=== PATIENT | male | born 1960 | race American Indian/Alaskan Native ===

== ENCOUNTER 2018-11-06 23:17 | Emergency (ER) | payer MEDICARE ==
[2018-11-07 00:37] LABS: Hemoglobin 12.2 gm/dl (11.8-15.2); Mean Corpuscular HGB Conc 34 % (32-34); Mean Corpuscular Volume 89 fl (84-94); Platelet Count 143 K/mm3 (140-440); Red Blood Count 4.04 M/mm3 (3.65-5.03); Red Cell Distribution Width 15.4 % (13.2-15.2)
[2018-11-07] MEDS ORDERED: ATIVAN IV ONE (00:38)
--- NOTE | 2018-11-07 00:45 | Emergency Department Report ---
ED Seizure HPI - General Chief Complaint: Seizure Stated Complaint: HEADACHE Time Seen by Provider: 11/06/18 23:53 Source: patient, EMS Mode of arrival: Stretcher Limitations: Physical Limitation - History of Present Illness Initial Comments: 58-year-old male with a past medical history diabetes, CAD with quadruple bypass, hypertension, bipolar disorder, PTSD, and severe depression presents from the [facility] with seizure and neurologic changes. Patient suspects that he is withdrawing from Klonopin. Patient has been on Klonopin for 20+ years. For the past 10 years he as been taking Klonopin 0.5 mg 3 times a day. He was recently at inpatient at [facility] where he was treated for suicide ideation. He was discharged 2 days into the [facility]. He states that he was told that he cannot take Klonopin at the [facility] and therefore he did not receive a prescription for Klonopin upon his discharge. Patient was discharged on metformin, propanolol, lisinopril, Lamictal, Glucotrol, meloxicam, BuSpar, Seroquel, Prilosec, and Effexor scripts. Pt also has an other med listed but does it is illegible to me on prescription. Patient states he actually hasn't had any of this medication in 2 days since being discharge from inpatient facility because they weren't filled over the weekend/holiday. Patient is having a stuttering speech, tremors, difficulty walking, and had a seizure prior to arrival. He also complains of a headache. - Related Data Home Medications Medication Instructions Recorded Confirmed Last Taken ARIPiprazole [Abilify TAB] 10 mg PO QHS 04/26/14 04/26/14 Unknown Benztropine [Cogentin] 1 mg PO QHS 04/26/14 04/26/14 Unknown Bupropion HCl [Wellbutrin XL] 300 mg PO QAM 04/26/14 04/26/14 Unknown Dicyclomine [Bentyl] 10 mg PO BID 04/26/14 04/26/14 Unknown Fluticasone Propionate [Flonase] 100 mcg NS QDAY 04/26/14 04/26/14 Unknown Furosemide [Lasix] 20 mg PO QAM 04/26/14 04/26/14 Unknown Haloperidol [Haldol] 5 mg PO BID 04/26/14 04/26/14 Unknown Ibuprofen [Motrin] 800 mg PO Q8H PRN 04/26/14 04/26/14 Unknown Loperamide [Imodium] 2 mg PO DAILY PRN 04/26/14 04/26/14 Unknown Pantoprazole [Protonix] 20 mg PO QDAY 04/26/14 04/26/14 Unknown QUEtiapine [SEROquel] 200 mg PO QHS 04/26/14 04/26/14 Unknown SUMAtriptan SUCCINATE [Imitrex] 100 mg PO BID PRN 04/26/14 04/26/14 Unknown Simvastatin 40 mg PO QHS 04/26/14 04/26/14 Unknown glipiZIDE [glipiZIDE ER] 2.5 mg PO BID 04/26/14 04/26/14 Unknown lamoTRIgine [LaMICtal] 150 mg PO BID 04/26/14 04/26/14 Unknown metFORMIN [Glucophage] 500 mg PO BID 04/26/14 04/26/14 Unknown methOCARBAMOL [Robaxin] 500 mg PO DAILY PRN 04/26/14 04/26/14 Unknown Previous Rx's Medication Instructions Recorded Last Taken Type Loratadine [Claritin] 10 mg PO DAILY #20 tablet 04/26/14 Unknown Rx metFORMIN [Glucophage] 1,000 mg PO BID #30 tablet 04/26/14 Unknown Rx Albuterol Sulfate [Proventil HFA] 1 - 2 puff IH Q4H PRN #1 hfa.aer.ad 04/28/14 Unknown Rx Loratadine [Claritin] 10 mg PO DAILY #20 tablet 04/28/14 Unknown Rx Naproxen Sodium [Aleve] 220 mg PO Q8H PRN #50 tablet 04/28/14 Unknown Rx Allergies Allergy/AdvReac Type Severity Reaction Status Date / Time amoxicillin trihydrate Allergy Swelling Verified 04/28/14 07:55 [From Augmentin] levofloxacin [From Levaquin] Allergy Unknown Verified 11/06/18 23:55 naproxen Allergy Unknown Verified 11/06/18 23:55 potassium clavulanate Allergy Swelling Verified 04/28/14 07:55 [From Augmentin] diphenhydramine HCl AdvReac RESTLESS Verified 04/28/14 07:55 [From Benadryl] LEG SYNDROME Penicillins AdvReac BODY Verified 04/28/14 07:55 BREAKS DOWN ED Review of Systems ROS: Stated complaint: HEADACHE Other details as noted in HPI Comment: All other systems reviewed and negative ED Past Medical Hx - Past Medical History Previous Medical History?: Yes Hx Hypertension: Yes Hx Heart Attack/AMI: Yes Hx Diabetes: Yes Hx Psychiatric Treatment: Yes (bipolar, panic DO, PTSD) Additional medical history: PTSD. PANIC DISORDER. SEVERE DEPRESSION. CAD - Surgical History Past Surgical History?: Yes Additional Surgical History: QUAD. BYPASS - Social History Smoking Status: Current Some Day Smoker Substance Use Type: None - Medications Home Medications: Home Medications Medication Instructions Recorded Confirmed Last Taken Type ARIPiprazole [Abilify TAB] 10 mg PO QHS 04/26/14 04/26/14 Unknown History Benztropine [Cogentin] 1 mg PO QHS 04/26/14 04/26/14 Unknown History Bupropion HCl [Wellbutrin XL] 300 mg PO QAM 04/26/14 04/26/14 Unknown History Dicyclomine [Bentyl] 10 mg PO BID 04/26/14 04/26/14 Unknown History Fluticasone Propionate [Flonase] 100 mcg NS QDAY 04/26/14 04/26/14 Unknown History Furosemide [Lasix] 20 mg PO QAM 04/26/14 04/26/14 Unknown History Haloperidol [Haldol] 5 mg PO BID 04/26/14 04/26/14 Unknown History Ibuprofen [Motrin] 800 mg PO Q8H PRN 04/26/14 04/26/14 Unknown History Loperamide [Imodium] 2 mg PO DAILY PRN 04/26/14 04/26/14 Unknown History Loratadine [Claritin] 10 mg PO DAILY #20 tablet 04/26/14 Unknown Rx Pantoprazole [Protonix] 20 mg PO QDAY 04/26/14 04/26/14 Unknown History QUEtiapine [SEROquel] 200 mg PO QHS 04/26/14 04/26/14 Unknown History SUMAtriptan SUCCINATE [Imitrex] 100 mg PO BID PRN 04/26/14 04/26/14 Unknown History Simvastatin 40 mg PO QHS 04/26/14 04/26/14 Unknown History glipiZIDE [glipiZIDE ER] 2.5 mg PO BID 04/26/14 04/26/14 Unknown History lamoTRIgine [LaMICtal] 150 mg PO BID 04/26/14 04/26/14 Unknown History metFORMIN [Glucophage] 1,000 mg PO BID #30 tablet 04/26/14 Unknown Rx metFORMIN [Glucophage] 500 mg PO BID 04/26/14 04/26/14 Unknown History methOCARBAMOL [Robaxin] 500 mg PO DAILY PRN 04/26/14 04/26/14 Unknown History Albuterol Sulfate [Proventil HFA] 1 - 2 puff IH Q4H PRN #1 hfa.aer.ad 04/28/14 Unknown Rx Loratadine [Claritin] 10 mg PO DAILY #20 tablet 04/28/14 Unknown Rx Naproxen Sodium [Aleve] 220 mg PO Q8H PRN #50 tablet 04/28/14 Unknown Rx ED Physical Exam - General Limitations: Physical Limitation - Other Other exam information: General: No limitations, patient is alert in no acute distress Head exam: Atraumatic, normocephalic Eyes exam: Normal appearance, pupils equal reactive to light, extraocular movements intact ENT: Moist mucous membrane, normal oropharynx Neck exam: Normal inspection, full range of motion, no meningismus nontender Respiratory exam: Clear to auscultation bilateral, no wheezes, rales, crackles Cardiovascular: Normal rate and rhythm, normal heart sounds Abdomen: Soft, nondistended, and nontender, with normal bowel sounds, no rebound, or guarding Extremity: Full range of motion normal inspection no deformity Back: Normal Inspection, full range of motion, no tenderness Neurologic: Alert, oriented x3, cranial nerves intact, stuttering speech, re sting tremor, [id number] function intact, 5/5 upper and lower extremity strength, sensation intact equal bilaterally. Psychiatric: normal affect, normal mood Skin: Warm, dry, intact ED Course Vital Signs 11/06/18 11/07/18 23:43 03:30 Temperature 99.5 F 99 F Pulse Rate 89 101 H Respiratory 16 16 Rate Blood Pressure 109/66 Blood Pressure 109/66 107/55 [Right] O2 Sat by Pulse 95 98 Oximetry - Reevaluation(s) Reevaluation #1: 11/07/18 03:36 pt is improving with ativan 1 mg. pt's gait is more steady, speech is more fluent. He is still very tremulous and heart rate ranges from 101-110. Elevated BUN creatinine ratio and therefore 1 L normal saline order. Hospitalist will be informed for admission ED Medical Decision Making - Lab Data Result diagrams: 11/07/18 00:08 11/07/18 00:08 Lab Results 11/06/18 11/07/18 11/07/18 Range/Units 23:47 00:08 00:08 WBC 5.7 (4.5-11.0) K/mm3 RBC 4.04 (3.65-5.03) M/mm3 Hgb 12.2 (11.8-15.2) gm/dl Hct 36.0 (35.5-45.6) % MCV 89 (84-94) fl MCH 30 (28-32) pg MCHC 34 (32-34) % RDW 15.4 H (13.2-15.2) % Plt Count 143 (140-440) K/mm3 Sodium 141 (137-145) mmol/L Potassium 3.9 (3.6-5.0) mmol/L Chloride 104.1 (98-107) mmol/L Carbon Dioxide 22 (22-30) mmol/L Anion Gap 19 mmol/L BUN 28 H (9-20) mg/dL Creatinine 1.4 (0.8-1.5) mg/dL Estimated GFR > 60 ml/min BUN/Creatinine Ratio 20 % Glucose 230 H (75-100) mg/dL POC Glucose 222 H (70-105) Calcium 9.0 (8.4-10.2) mg/dL Magnesium (1.7-2.3) mg/dL Urine Color (Yellow) Urine Turbidity (Clear) Urine pH (5.0-7.0) Ur Specific [place] (1.003-1.030) Urine Protein (Negative) mg/dL Urine Glucose (UA) (Negative) mg/dL Urine Ketones (Negative) mg/dL Urine Blood (Negative) Urine Nitrite (Negative) Urine Bilirubin (Negative) Urine Urobilinogen (<2.0) mg/dL Ur Leukocyte Esterase (Negative) Urine WBC (Auto) (0.0-6.0) /HPF Urine RBC (Auto) (0.0-6.0) /HPF U Epithel Cells (Auto) (0-13.0) /HPF Hyaline Casts /LPF Urine Mucus /HPF Urine Opiates Screen Urine Methadone Screen Ur Barbiturates Screen Ur Phencyclidine Scrn Ur Amphetamines Screen U Benzodiazepines Scrn Urine Cocaine Screen U Marijuana (THC) Screen Drugs of Abuse Note Plasma/Serum Alcohol (0-0.07) % 11/07/18 11/07/18 11/07/18 Range/Units 00:08 00:08 01:09 WBC (4.5-11.0) K/mm3 RBC (3.65-5.03) M/mm3 Hgb (11.8-15.2) gm/dl Hct (35.5-45.6) % MCV (84-94) fl MCH (28-32) pg MCHC (32-34) % RDW (13.2-15.2) % Plt Count (140-440) K/mm3 Sodium (137-145) mmol/L Potassium (3.6-5.0) mmol/L Chloride (98-107) mmol/L Carbon Dioxide (22-30) mmol/L Anion Gap mmol/L BUN (9-20) mg/dL Creatinine (0.8-1.5) mg/dL Estimated GFR ml/min BUN/Creatinine Ratio % Glucose (75-100) mg/dL POC Glucose (70-105) Calcium (8.4-10.2) mg/dL Magnesium 1.50 L (1.7-2.3) mg/dL Urine Color Yellow (Yellow) Urine Turbidity Clear (Clear) Urine pH 5.0 (5.0-7.0) Ur Specific [place] 1.019 (1.003-1.030) Urine Protein <15 mg/dl (Negative) mg/dL Urine Glucose (UA) 50 (Negative) mg/dL Urine Ketones Neg (Negative) mg/dL Urine Blood Neg (Negative) Urine Nitrite Neg (Negative) Urine Bilirubin Neg (Negative) Urine Urobilinogen < 2.0 (<2.0) mg/dL Ur Leukocyte Esterase Neg (Negative) Urine WBC (Auto) 1.0 (0.0-6.0) /HPF Urine RBC (Auto) 3.0 (0.0-6.0) /HPF U Epithel Cells (Auto) < 1.0 (0-13.0) /HPF Hyaline Casts 1 /LPF Urine Mucus Few /HPF Urine Opiates Screen Urine Methadone Screen Ur Barbiturates Screen Ur Phencyclidine Scrn Ur Amphetamines Screen U Benzodiazepines Scrn Urine Cocaine Screen U Marijuana (THC) Screen Drugs of Abuse Note Plasma/Serum Alcohol < 0.01 (0-0.07) % 11/07/18 Range/Units 01:09 WBC (4.5-11.0) K/mm3 RBC (3.65-5.03) M/mm3 Hgb (11.8-15.2) gm/dl Hct (35.5-45.6) % MCV (84-94) fl MCH (28-32) pg MCHC (32-34) % RDW (13.2-15.2) % Plt Count (140-440) K/mm3 Sodium (137-145) mmol/L Potassium (3.6-5.0) mmol/L Chloride (98-107) mmol/L Carbon Dioxide (22-30) mmol/L Anion Gap mmol/L BUN (9-20) mg/dL Creatinine (0.8-1.5) mg/dL Estimated GFR ml/min BUN/Creatinine Ratio % Glucose (75-100) mg/dL POC Glucose (70-105) Calcium (8.4-10.2) mg/dL Magnesium (1.7-2.3) mg/dL Urine Color (Yellow) Urine Turbidity (Clear) Urine pH (5.0-7.0) Ur Specific [place] (1.003-1.030) Urine Protein (Negative) mg/dL Urine Glucose (UA) (Negative) mg/dL Urine Ketones (Negative) mg/dL Urine Blood (Negative) Urine Nitrite (Negative) Urine Bilirubin (Negative) Urine Urobilinogen (<2.0) mg/dL Ur Leukocyte Esterase (Negative) Urine WBC (Auto) (0.0-6.0) /HPF Urine RBC (Auto) (0.0-6.0) /HPF U Epithel Cells (Auto) (0-13.0) /HPF Hyaline Casts /LPF Urine Mucus /HPF Urine Opiates Screen Presumptive negative Urine Methadone Screen Presumptive negative Ur Barbiturates Screen Presumptive negative Ur Phencyclidine Scrn Presumptive negative Ur Amphetamines Screen Presumptive negative U Benzodiazepines Scrn Presumptive negative Urine Cocaine Screen Presumptive negative U Marijuana (THC) Screen Presumptive negative Drugs of Abuse Note Disclamer Plasma/Serum Alcohol (0-0.07) % - Radiology Data Radiology results: report reviewed CT HEAD WITHOUT CONTRAST INDICATION: sz, stuttering speech, tremor. TECHNIQUE: All CT scans at this location are performed using CT dose reduction for ALARA by means of automated exposure control. COMPARISON: None available. FINDINGS: HEMORRHAGE: None. EXTRA-AXIAL SPACES: Normal in size and morphology for the patient's age. VENTRICULAR SYSTEM: Normal in size and morphology for the patient's age. BRAIN PARENCHYMA: No acute findings. Mild deep periventricular white matter hypodensities are likely due to mild microangiopathy. MIDLINE SHIFT OR HERNIATION: None. ORBITS: Normal as visualized. SOFT TISSUES OF HEAD: There appears to be a small left parietal scalp contusion. CALVARIUM: Normal. VISUALIZED PARANASAL SINUSES AND MASTOID AIR CELLS: Clear. ADDITIONAL FINDINGS: None. IMPRESSION: 1. No acute intracranial abnormality. - Medical Decision Making pt will be admitted for significant benzo withdrawal improving but persistent withdrawal symptoms with a history of benzodiazepine dependence Patient will be admitted to the hospital for further treatment IV mag given for hypomagnesemia - Differential Diagnosis Klonopin withdrawal, CVA, encephalopathy Critical Care Time: No Critical care attestation.: If time is entered above; I have spent that time in minutes in the direct care of this critically ill patient, excluding procedure time. ED Disposition Clinical Impression: Benzodiazepine dependence, Benzodiazepine withdrawal, Seizure, Tremor, Abnormal rate of speech, Hypomagnesemia Disposition: DC-09 OP ADMIT IP TO THIS HOSP Is pt being admited?: Yes Condition: Stable Time of Disposition: 03:44 (Dr Fan/hosp)
[2018-11-07 00:49] LABS: BUN/Creatinine Ratio 20; Blood Urea Nitrogen 28 mg/dL (9-20); Hemolysis Index 6
--- NOTE | 2018-11-07 01:30 | Cat Scan Report ---
CT HEAD WITHOUT CONTRAST INDICATION: sz, stuttering speech, tremor. TECHNIQUE: All CT scans at this location are performed using CT dose reduction for ALARA by means of automated e xposure control. COMPARISON: None available. FINDINGS: HEMORRHAGE: None. EXTRA-AXIAL SPACES: Normal in size and morphology for the patient's age. VENTRICULAR SYSTEM: Normal in size and morphology for the patient's age. BRAIN PARENCHYMA: No acute findings. Mild deep periventricular white matter hypodensities are likely due to mild microangiopathy. MIDLINE SHIFT OR HERNIATION: None. ORBITS: Normal as visualized. SOFT TISSUES OF HEAD: There appears to be a small left parietal scalp contusion. CALVARIUM: Normal. VISUALIZED PARANASAL SINUSES AND MASTOID AIR CELLS: Clear. ADDITIONAL FINDINGS: None. IMPRESSION: 1. No acute intracranial abnormality. Signer Name: Linus Corbett MD Signed: 11/07/2018 1:26 AM Workstation Name: [id number]
[2018-11-07] MEDS ORDERED: MAGNESIUM SULFATE 1 GM in NACL 0.9% 50 ML IV ONE (02:07)
[2018-11-07 02:09] LABS: Bilirubin,Urine NEG (Negative); Blood,Urine NEG (Negative); Color,Urine Yellow (Yellow); Hyaline Casts,Urine 1 /LPF; Mucus,Urine FEW /HPF; Protein,Urine <15 mg/dL mg/dL (Negative); Urobilinogen,Urine < 2.0 mg/dL (<2.0)
[2018-11-07 02:15] LABS: Amphetamine Screen,Urine PRESUMPTIVE NEGATIVE; Benzodiazepines Screen,Urine PRESUMPTIVE NEGATIVE; Cannabinoid Screen,Urine PRESUMPTIVE NEGATIVE; Cocaine Screen,Urine PRESUMPTIVE NEGATIVE; Methadone Screen,Urine PRESUMPTIVE NEGATIVE; Opiate Screen,Urine PRESUMPTIVE NEGATIVE
[2018-11-07] MEDS ORDERED: NACL 0.9% 1000 ML 1,000 ML IV ONE (03:36)
[2018-11-07] MEDS ORDERED: SODIUM CHLORIDE FLUSH SYRINGE 10 ML IV PRN (03:51)
[2018-11-07] MEDS ORDERED: ZOFRAN IV PRN (03:51)
[2018-11-07] MEDS ORDERED: PROVENTIL IH PRN (03:51)
[2018-11-07] MEDS ORDERED: TYLENOL PO PRN (03:51)
--- NOTE | 2018-11-07 03:59 | History and Physical Report ---
History of Present Illness Date of examination: 11/07/18 Date of admission: 11/06/2018 Chief complaint: Seizure, benzodiazepine withdrawal Past History Past Medical History: CAD (status post quadruple bypass surgery), diabetes, hypertension, other (bipolar disorder, PTSD, severe depression, panic disorder) Past Surgical History: Other (status post quadruple bypass surgery) Social history: smoking (current ME a smoker), other (resident at [facility]/ rehabilitation [facility]) Family history: no significant family history Medications and Allergies Allergies Allergy/AdvReac Type Severity Reaction Status Date / Time amoxicillin trihydrate Allergy Swelling Verified 04/28/14 07:55 [From Augmentin] levofloxacin [From Levaquin] Allergy Unknown Verified 11/06/18 23:55 naproxen Allergy Unknown Verified 11/06/18 23:55 potassium clavulanate Allergy Swelling Verified 04/28/14 07:55 [From Augmentin] diphenhydramine HCl AdvReac RESTLESS Verified 04/28/14 07:55 [From Benadryl] LEG SYNDROME Penicillins AdvReac BODY Verified 04/28/14 07:55 BREAKS DOWN Home Medications Medication Instructions Recorded Confirmed Last Taken Type ARIPiprazole [Abilify TAB] 10 mg PO QHS 04/26/14 04/26/14 Unknown History Benztropine [Cogentin] 1 mg PO QHS 04/26/14 04/26/14 Unknown History Bupropion HCl [Wellbutrin XL] 300 mg PO QAM 04/26/14 04/26/14 Unknown History Dicyclomine [Bentyl] 10 mg PO BID 04/26/14 04/26/14 Unknown History Fluticasone Propionate [Flonase] 100 mcg NS QDAY 04/26/14 04/26/14 Unknown History Furosemide [Lasix] 20 mg PO QAM 04/26/14 04/26/14 Unknown History Haloperidol [Haldol] 5 mg PO BID 04/26/14 04/26/14 Unknown History Ibuprofen [Motrin] 800 mg PO Q8H PRN 04/26/14 04/26/14 Unknown History Loperamide [Imodium] 2 mg PO DAILY PRN 04/26/14 04/26/14 Unknown History Loratadine [Claritin] 10 mg PO DAILY #20 tablet 04/26/14 Unknown Rx Pantoprazole [Protonix] 20 mg PO QDAY 04/26/14 04/26/14 Unknown History QUEtiapine [SEROquel] 200 mg PO QHS 04/26/14 04/26/14 Unknown History SUMAtriptan SUCCINATE [Imitrex] 100 mg PO BID PRN 04/26/14 04/26/14 Unknown History Simvastatin 40 mg PO QHS 04/26/14 04/26/14 Unknown History glipiZIDE [glipiZIDE ER] 2.5 mg PO BID 04/26/14 04/26/14 Unknown History lamoTRIgine [LaMICtal] 150 mg PO BID 04/26/14 04/26/14 Unknown History metFORMIN [Glucophage] 1,000 mg PO BID #30 tablet 04/26/14 Unknown Rx metFORMIN [Glucophage] 500 mg PO BID 04/26/14 04/26/14 Unknown History methOCARBAMOL [Robaxin] 500 mg PO DAILY PRN 04/26/14 04/26/14 Unknown History Albuterol Sulfate [Proventil HFA] 1 - 2 puff IH Q4H PRN #1 hfa.aer.ad 04/28/14 Unknown Rx Loratadine [Claritin] 10 mg PO DAILY #20 tablet 04/28/14 Unknown Rx Naproxen Sodium [Aleve] 220 mg PO Q8H PRN #50 tablet 04/28/14 Unknown Rx Active Meds: Active Medications Acetaminophen (Tylenol) 650 mg PO Q4H PRN PRN Reason: Pain MILD(1-3)/Fever >100.5/BE Albuterol (Proventil) 2.5 mg IH Q4HRT PRN PRN Reason: Shortness Of Breath Docusate Sodium (Colace) 100 mg PO BID MISTY Enoxaparin Sodium (Lovenox) 40 mg SUB-Q QDAY MISTY Sodium Chloride (Nacl 0.9% 1000 Ml) 1,000 mls @ 999 mls/hr IV BOLUS ONE Stop: 11/07/18 04:36 Last Admin: 11/07/18 03:39 Dose: 999 mls/hr Documented by: Ondansetron HCl (Zofran) 4 mg IV Q8H PRN PRN Reason: Nausea And Vomiting Sodium Chloride (Sodium Chloride Flush Syringe 10 Ml) 10 ml IV BID MISTY Sodium Chloride (Sodium Chloride Flush Syringe 10 Ml) 10 ml IV PRN PRN PRN Reason: LINE FLUSH Exam - Constitutional Vitals: Temp Pulse Resp BP Pulse Ox 99 F 101 H 16 107/55 98 11/07/18 03:30 11/07/18 03:30 11/07/18 03:30 11/07/18 03:30 11/07/18 03:30 Results - Labs CBC & Chem 7: 11/07/18 00:08 11/07/18 00:08 Labs: Laboratory Last Values WBC 5.7 K/mm3 (4.5-11.0) 11/07/18 00:08 RBC 4.04 M/mm3 (3.65-5.03) 11/07/18 00:08 Hgb 12.2 gm/dl (11.8-15.2) 11/07/18 00:08 Hct 36.0 % (35.5-45.6) 11/07/18 00:08 MCV 89 fl (84-94) 11/07/18 00:08 MCH 30 pg (28-32) 11/07/18 00:08 MCHC 34 % (32-34) 11/07/18 00:08 RDW 15.4 % (13.2-15.2) H 11/07/18 00:08 Plt Count 143 K/mm3 (140-440) 11/07/18 00:08 Sodium 141 mmol/L (137-145) 11/07/18 00:08 Potassium 3.9 mmol/L (3.6-5.0) 11/07/18 00:08 Chloride 104.1 mmol/L (98-107) 11/07/18 00:08 Carbon Dioxide 22 mmol/L (22-30) 11/07/18 00:08 19 mmol/L 11/07/18 00:08 BUN 28 mg/dL (9-20) H 11/07/18 00:08 1.4 mg/dL (0.8-1.5) 11/07/18 00:08 Estimated GFR > 60 ml/min 11/07/18 00:08 20 % 11/07/18 00:08 Glucose 230 mg/dL (75-100) H 11/07/18 00:08 POC Glucose 222 (70-105) H 11/06/18 23:47 Calcium 9.0 mg/dL (8.4-10.2) 11/07/18 00:08 Magnesium 1.50 mg/dL (1.7-2.3) L 11/07/18 00:08 Yellow (Yellow) 11/07/18 01:09 Clear (Clear) 11/07/18 01:09 5.0 (5.0-7.0) 11/07/18 01:09 Ur Specific [place] 1.019 (1.003-1.030) 11/07/18 01:09 <15 mg/dl mg/dL (Negative) 11/07/18 01:09 50 mg/dL (Negative) 11/07/18 01:09 Neg mg/dL (Negative) 11/07/18 01:09 Neg (Negative) 11/07/18 01:09 Neg (Negative) 11/07/18 01:09 Neg (Negative) 11/07/18 01:09 < 2.0 mg/dL (<2.0) 11/07/18 01:09 Ur Leukocyte Esterase Neg (Negative) 11/07/18 01:09 1.0 /HPF (0.0-6.0) 11/07/18 01:09 3.0 /HPF (0.0-6.0) 11/07/18 01:09 U Epithel Cells (Auto) < 1.0 /HPF (0-13.0) 11/07/18 01:09 Hyaline Casts 1 /LPF 11/07/18 01:09 Few /HPF 11/07/18 01:09 Presumptive negative 11/07/18 01:09 Presumptive negative 11/07/18 01:09 Ur Barbiturates Screen Presumptive negative 11/07/18 01:09 Ur Phencyclidine Scrn Presumptive negative 11/07/18 01:09 Ur Amphetamines Screen Presumptive negative 11/07/18 01:09 U Benzodiazepines Scrn Presumptive negative 11/07/18 01:09 Presumptive negative 11/07/18 01:09 U Marijuana (THC) Screen Presumptive negative 11/07/18 01:09 Disclamer 11/07/18 01:09 Plasma/Serum Alcohol < 0.01 % (0-0.07) 11/07/18 00:08 - Imaging and Cardiology Imaging and Cardiology: CT head: FINDINGS: HEMORRHAGE: None. EXTRA-AXIAL SPACES: Normal in size and morphology for the patient's age. VENTRICULAR SYSTEM: Normal in size and morphology for the patient's age. BRAIN PARENCHYMA: No acute findings. Mild deep periventricular white matter hypodensities are likely due to mild microangiopathy. MIDLINE SHIFT OR HERNIATION: None. ORBITS: Normal as visualized. SOFT TISSUES OF HEAD: There appears to be a small left parietal scalp contusion. CALVARIUM: Normal. VISUALIZED PARANASAL SINUSES AND MASTOID AIR CELLS: Clear. ADDITIONAL FINDINGS: None. IMPRESSION: 1. No acute intracranial abnormality.
[2018-11-07] MEDS: GLUCOPHAGE PO SCH ×2 (07:55→19:02)
[2018-11-07] MEDS: GLUCOTROL PO SCH ×2 (08:19→19:02)
[2018-11-07] MEDS ORDERED: VENLAFAXINE HCL 150 MG PO SCH (10:00)
[2018-11-07] MEDS ORDERED: NON-FORMULARY (Metformin Hcl [Metformin] 1,000 MG) PO SCH (10:00)
[2018-11-07] MEDS ORDERED: NON-FORMULARY (Lamotrigine [Lamictal] 150 MG) PO SCH (10:00)
[2018-11-07] MEDS ORDERED: PROPRANOLOL HCL 60 MG PO SCH (10:00)
[2018-11-07] MEDS ORDERED: LOVENOX SUB-Q SCH (10:00)
[2018-11-07] MEDS ORDERED: SODIUM CHLORIDE FLUSH SYRINGE 10 ML IV SCH (10:00)
[2018-11-07] MEDS ORDERED: OMEPRAZOLE MAGNESIUM 40 MG PO SCH (10:00)
[2018-11-07] MEDS ORDERED: NON-FORMULARY (Meloxicam [Mobic] 15 MG) PO SCH (10:00)
[2018-11-07] MEDS ORDERED: BUSPAR ONE ×2 (10:26→22:38)
[2018-11-07] MEDS ORDERED: PROTONIX PO ONE (10:27)
[2018-11-07] MEDS ORDERED: COLACE ONE ×2 (10:27→22:38)
[2018-11-07] MEDS ORDERED: ZESTRIL ONE (10:28)
[2018-11-07] MEDS: COLACE PO SCH ×2 (10:36→22:41)
[2018-11-07] MEDS: BUSPAR PO SCH ×2 (10:36→22:41)
[2018-11-07] MEDS: INDERAL LA PO SCH (10:37)
[2018-11-07] MEDS: EFFEXOR XR PO SCH (10:37)
[2018-11-07] MEDS: MOBIC PO SCH (10:38)
[2018-11-07] MEDS: LaMICtal PO SCH ×2 (10:38→22:42)
[2018-11-07] MEDS: PROTONIX PO SCH ×2 (10:39→22:42)
[2018-11-07] MEDS: ZESTRIL PO SCH (10:39)
[2018-11-07] MEDS: TRICOR PO SCH (10:39)
[2018-11-07] MEDS ORDERED: GLUCOPHAGE ONE (19:00)
[2018-11-07] MEDS ORDERED: NON-FORMULARY (Quetiapine Fumarate [Seroquel] 300 MG) PO SCH (22:00)
[2018-11-07] MEDS ORDERED: LaMICtal ONE ×2 (22:39→22:40)
[2018-11-08] MEDS ORDERED: GLUCOPHAGE ONE (08:42)
[2018-11-08] MEDS: GLUCOPHAGE PO SCH ×2 (08:45→18:15)
[2018-11-08] MEDS: GLUCOTROL PO SCH ×2 (09:00→18:15)
[2018-11-08] MEDS ORDERED: BUSPAR ONE ×2 (11:56→23:45)
[2018-11-08] MEDS ORDERED: COLACE ONE (11:57)
[2018-11-08] MEDS ORDERED: PROTONIX PO ONE ×2 (12:01→23:44)
[2018-11-08] MEDS ORDERED: ZESTRIL ONE (12:02)
[2018-11-08] MEDS: COLACE PO SCH ×2 (12:05→23:55)
[2018-11-08] MEDS: BUSPAR PO SCH ×2 (12:05→23:55)
[2018-11-08] MEDS: PROTONIX PO SCH ×2 (12:07→23:56)
[2018-11-08] MEDS ORDERED: LaMICtal ONE ×3 (12:26→23:45)
[2018-11-08] MEDS: LaMICtal PO SCH ×2 (12:30→23:55)
[2018-11-08] MEDS: ZESTRIL PO SCH (12:30)
[2018-11-08] MEDS: MOBIC PO SCH (14:30)
[2018-11-08] MEDS: EFFEXOR XR PO SCH (14:30)
[2018-11-08] MEDS: TRICOR PO SCH (14:30)
[2018-11-08] MEDS: INDERAL LA PO SCH (14:30)
[2018-11-08] MEDS ORDERED: TYLENOL PO ONE (20:47)
[2018-11-08] MEDS ORDERED: TYLENOL ONE (20:56)
[2018-11-09] MEDS: GLUCOTROL PO SCH ×2 (08:15→18:44)
[2018-11-09] MEDS ORDERED: GLUCOPHAGE ONE ×2 (08:31→18:27)
[2018-11-09] MEDS: GLUCOPHAGE PO SCH ×2 (08:40→18:27)
[2018-11-09] MEDS ORDERED: LaMICtal ONE ×4 (11:21→22:43)
[2018-11-09] MEDS ORDERED: COLACE ONE ×2 (11:22→22:42)
[2018-11-09] MEDS ORDERED: BUSPAR ONE ×2 (11:22→22:42)
[2018-11-09] MEDS ORDERED: PROTONIX PO ONE ×2 (11:24→22:42)
[2018-11-09] MEDS: INDERAL LA PO SCH (11:30)
[2018-11-09] MEDS: BUSPAR PO SCH ×2 (11:30→22:50)
[2018-11-09] MEDS: COLACE PO SCH ×2 (11:30→22:50)
[2018-11-09] MEDS: PROTONIX PO SCH ×2 (11:31→22:50)
[2018-11-09] MEDS: LaMICtal PO SCH ×2 (11:31→22:50)
[2018-11-09] MEDS: ZESTRIL PO SCH (11:31)
[2018-11-09] MEDS: MOBIC PO SCH (12:41)
[2018-11-09] MEDS: TRICOR PO SCH (12:42)
[2018-11-09] MEDS: EFFEXOR XR PO SCH (12:42)
[2018-11-10] MEDS: GLUCOTROL PO SCH (08:09)
[2018-11-10] MEDS: GLUCOPHAGE PO SCH (08:09)
[2018-11-10] MEDS ORDERED: COLACE ONE (09:43)
[2018-11-10] MEDS ORDERED: ZESTRIL ONE (09:43)
[2018-11-10] MEDS ORDERED: LaMICtal ONE ×2 (09:48)
[2018-11-10] MEDS ORDERED: BUSPAR ONE (09:48)
[2018-11-10] MEDS ORDERED: PROTONIX PO ONE (09:48)
[2018-11-10] MEDS: INDERAL LA PO SCH (10:00)
[2018-11-10] MEDS: ZESTRIL PO SCH (10:00)
[2018-11-10 10:01] VITALS: BP 107/80
[2018-11-10] MEDS: MOBIC PO SCH (10:01)
[2018-11-10] MEDS: BUSPAR PO SCH (10:01)
[2018-11-10] MEDS: EFFEXOR XR PO SCH (10:01)
[2018-11-10] MEDS: COLACE PO SCH (10:01)
[2018-11-10] MEDS: TRICOR PO SCH (10:01)
[2018-11-10] MEDS: LaMICtal PO SCH (10:01)
[2018-11-10] MEDS: PROTONIX PO SCH (10:01)
== END 2018-11-10 16:33 | disposition admitted as inpatient to this hospital (09) ==
LOC: EEVIPCON 23:17 → ED 23:17 → UNDOADMIN 11-07 03:52 → 3A 11-07 03:52 → 4A 11-07 08:24 → 3A 11-07 08:24 → ED 11-10 16:33
DX: R56.9 Unspecified convulsions (principal); E83.42 Hypomagnesemia; F13.20 Sedative, hypnotic or anxiolytic dependence, uncomplicated; I10 Essential (primary) hypertension; F31.9 Bipolar disorder, unspecified; F43.10 Post-traumatic stress disorder, unspecified; E11.9 Type 2 diabetes mellitus without complications; I25.2 Old myocardial infarction; F17.200 Nicotine dependence, unspecified, uncomplicated; Z79.899 Other long term (current) drug therapy
CPT/HCPCS: 36415; 70450; 80048; 80307; 81001; 82962; 83735; 85027; 93005; 96361; 96365; 96375; 99285; J2060; J3475; J7030; 80320; G0480

== ENCOUNTER 2021-04-24 15:42 | Emergency (ER) | payer MEDICARE ==
[2021-04-24] MEDS ORDERED: ONDANSETRON 4 MG ODT TAB PO ONE (15:48)
--- NOTE | 2021-04-24 16:06 | Emergency Department Report ---
ED General Adult HPI - General Chief complaint: Neuro Symptoms/Deficit Stated complaint: R SIDE NUMBNESS FROM RECENT STROKE Time Seen by Provider: 04/24/21 15:47 Source: EMS Mode of arrival: Wheelchair Limitations: No Limitations - History of Present Illness Initial comments: Patient came in by ambulance with multiple issues. He states that he has felt dizzy and lightheaded. This is been present for weeks. He reports aching in the right arm and shoulder. This is also been present for weeks. He [place]. He has had a stroke several weeks ago. He states that he is on medication. He has not taken his pain medication yet and states that he "forgets to take his pain medication." He states that he forgets to take his pain medicine despite having severe pain that is constant and aching and chronic. Regardless, he states that he is sick. He reiterates that he is sick. He states that multiple doctors just do not understand how "sick he really is." He could not get into see his regular doctor. He tried calling his former doctor who told him he needed to call an ambulance. Patient called EMS and was transported here. - Related Data Home Medications Medication Instructions Recorded Confirmed Last Taken Fenofibrate [Tricor] 145 mg PO QDAY 11/07/18 11/07/18 Unknown Meloxicam [Mobic] 15 mg PO DAILY 11/07/18 11/07/18 Unknown Metformin HCl [metFORMIN] 1,000 mg PO BID 11/07/18 11/07/18 Unknown Omeprazole Magnesium [Prilosec] 40 mg PO BID 11/07/18 11/07/18 Unknown Propranolol HCl 60 mg PO DAILY 11/07/18 11/07/18 Unknown Quetiapine Fumarate [SEROquel] 300 mg PO HS 11/07/18 11/07/18 Unknown Venlafaxine HCl [Effexor Xr] 150 mg PO DAILY 11/07/18 11/07/18 Unknown busPIRone [Buspar] 15 mg PO BID 11/07/18 11/07/18 Unknown glipiZIDE [Glucotrol] 5 mg PO BID 11/07/18 11/07/18 Unknown lamoTRIgine [LaMICtal] 150 mg PO BID 11/07/18 11/07/18 Unknown lisinopriL [Zestril] 20 mg PO QDAY 11/07/18 11/07/18 Unknown Previous Rx's Medication Instructions Recorded Last Taken Type clonazePAM [KlonoPIN] 0.5 mg PO TID #15 tablet 11/10/18 Unknown Rx Allergies Allergy/AdvReac Type Severity Reaction Status Date / Time amoxicillin trihydrate Allergy Swelling Verified 04/28/14 07:55 [From Augmentin] levofloxacin [From Levaquin] Allergy Unknown Verified 11/06/18 23:55 naproxen Allergy Unknown Verified 11/06/18 23:55 potassium clavulanate Allergy Swelling Verified 04/28/14 07:55 [From Augmentin] diphenhydramine HCl AdvReac RESTLESS Verified 04/28/14 07:55 [From Benadryl] LEG SYNDROME Penicillins AdvReac BODY Verified 04/28/14 07:55 BREAKS DOWN ED Review of Systems ROS: Stated complaint: R SIDE NUMBNESS FROM RECENT STROKE Other details as noted in HPI Comment: All other systems reviewed and negative Constitutional: denies: fever Eyes: denies: eye pain ENT: denies: throat pain Respiratory: denies: cough Cardiovascular: denies: chest pain Endocrine: denies: unexplained weight loss Gastrointestinal: nausea. denies: abdominal pain Genitourinary: denies: dysuria Musculoskeletal: denies: back pain Skin: denies: rash Neurological: denies: headache Hematological/Lymphatic: denies: easy bruising ED Past Medical Hx - Past Medical History Hx Hypertension: Yes Hx Heart Attack/AMI: Yes Hx Diabetes: Yes Hx Psychiatric Treatment: Yes (bipolar, panic DO, PTSD) Additional medical history: PTSD. PANIC DISORDER. SEVERE DEPRESSION. CAD - Surgical History Additional Surgical History: QUAD. BYPASS - Family History Family history: hypertension - Social History Smoking Status: Current Some Day Smoker (We discussed tobacco cessation x3 minutes) Substance Use Type: None - Medications Home Medications: Home Medications Medication Instructions Recorded Confirmed Last Taken Type Fenofibrate [Tricor] 145 mg PO QDAY 11/07/18 11/07/18 Unknown History Meloxicam [Mobic] 15 mg PO DAILY 11/07/18 11/07/18 Unknown History Metformin HCl [metFORMIN] 1,000 mg PO BID 11/07/18 11/07/18 Unknown History Omeprazole Magnesium [Prilosec] 40 mg PO BID 11/07/18 11/07/18 Unknown History Propranolol HCl 60 mg PO DAILY 11/07/18 11/07/18 Unknown History Quetiapine Fumarate [SEROquel] 300 mg PO HS 11/07/18 11/07/18 Unknown History Venlafaxine HCl [Effexor Xr] 150 mg PO DAILY 11/07/18 11/07/18 Unknown History busPIRone [Buspar] 15 mg PO BID 11/07/18 11/07/18 Unknown History glipiZIDE [Glucotrol] 5 mg PO BID 11/07/18 11/07/18 Unknown History lamoTRIgine [LaMICtal] 150 mg PO BID 11/07/18 11/07/18 Unknown History lisinopriL [Zestril] 20 mg PO QDAY 11/07/18 11/07/18 Unknown History clonazePAM [KlonoPIN] 0.5 mg PO TID #15 tablet 11/10/18 Unknown Rx ED Physical Exam - General Limitations: No Limitations, Other General appearance: alert, in no apparent distress - Head Head exam: Present: atraumatic, normocephalic - Eye Eye exam: Present: normal appearance, EOMI - ENT ENT exam: Present: normal orophraynx, normal external ear exam - Neck Neck exam: Present: normal inspection. Absent: meningismus - Respiratory Respiratory exam: Present: normal lung sounds bilaterally. Absent: respiratory distress - Cardiovascular Cardiovascular Exam: Present: regular rate, normal rhythm - GI/Abdominal GI/Abdominal exam: Present: soft. Absent: tenderness - Extremities Exam Extremities exam: Present: normal capillary refill - Back Exam Back exam: Absent: CVA tenderness (R), CVA tenderness (L) - Neurological Exam Neurological exam: Present: alert, oriented X3, CN II-XII intact, normal gait. Absent: motor sensory deficit - Psychiatric Psychiatric exam: Present: normal affect, normal mood - Skin Skin exam: Present: warm, dry ED Course Vital Signs 04/24/21 04/24/21 15:43 17:51 Temperature 98.6 F Pulse Rate 89 76 Respiratory 14 15 Rate Blood Pressure 120/68 102/65 [Left] O2 Sat by Pulse 98 98 Oximetry - Reevaluation(s) Reevaluation #1: 04/24/21 13:25 EMS was met upon arrival. EKG was ordered. Old records reviewed. Reevaluation #2: 04/24/21 18:06 EKG have been noted. Glucose was noted. Patient was discharged. ED Medical Decision Making - EKG Data -: EKG Interpreted by Me - EKG Data 04/24/21 18:06 EKG shows normal sinus rhythm at 74. Intervals are normal including QRS of 98 and a QT corrected of 444. Patient has no ST elevation to suggest STEMI. There is no ST depression suggestive of ischemia. He has T wave flattening but there is no interval change. There is artifact noted. - Medical Decision Making Patient presents with multiple issues that are chronic in nature. He reports having ongoing dizziness. There is no neurologic symptom that is new related to a new stroke or TIA. He actually had dizziness for quite some time before he actually had a stroke. This is described as lightheadedness. It is not vertiginous in nature. There is no head trauma. Patient also complained of chronic right arm pain. He was having so much pain that he sometimes forgets to take his pain medication. Regardless, there is no new trauma. I am not concerned for fracture or dislocation. Certainly, there is no EKG changes would suggest referred pain from an ACS type source. He was referred to his PCP for recheck. He can take his regular pain medication at home. Critical Care Time: No Critical care attestation.: If time is entered above; I have spent that time in minutes in the direct care of this critically ill patient, excluding procedure time. ED Disposition Clinical Impression: Dizziness, Chronic pain syndrome Disposition: 01 HOME / SELF CARE / HOMELESS Is pt being admited?: No Condition: Stable Instructions: Chronic Pain, Adult, Dizziness Additional Instructions: Drink plenty water. Continue home medication. Return for problems. Follow-up with your regular doctor for recheck.
[2021-04-24 17:52] VITALS: BP 102/65
--- NOTE | 2021-04-25 13:28 | Electrocardiograph Report ---
[facility] Test Date: 2021-04-24 Test Time: 17:12:12 Pat Name: ROLANDO COLON Department: Room: Gender: M [employer]: CARLOS : 1960 Requested By: LUCINA OSHEA Order Number: [id number] Reading MD: Antoine Ahn Measurements Intervals Carver Rate: 74 P: 32 WA: 143 QRS: 80 QRSD: 98 T: 33 QT: 400 QTc: 444 Interpretive Statements Sinus rhythm Probable left atrial enlargement No previous ECG available for comparison Electronically Signed On 04-25-2021 13:28:20 EST by Antoine Ahn
== END 2021-04-24 18:53 | disposition home or self-care (01) ==
LOC: ED 15:42
DX: G89.4 Chronic pain syndrome (principal); R42 Dizziness and giddiness; I10 Essential (primary) hypertension; E11.9 Type 2 diabetes mellitus without complications; F31.9 Bipolar disorder, unspecified; F17.200 Nicotine dependence, unspecified, uncomplicated; Z88.1 Allergy status to other antibiotic agents; Z88.0 Allergy status to penicillin; Z88.8 Allergy status to other drugs, medicaments and biological substances; Z79.899 Other long term (current) drug therapy
CPT/HCPCS: 82962; 93005; 99283; J3490; Q0162